=== PATIENT | female | born 1960 | race Caucasian/White ===

== ENCOUNTER 2021-04-11 21:57 | Inpatient (IN) | payer OTHER ==
[~2021-04-11] VITALS: Ht 152.4 cm; Wt 30.5 kg
[~2021-04-11 21:57] MED LIST: MEDROLDOSEPACK PO; TESSALON PERLE100 MG PO; VENTOLIN HFA 1818 GM INH; ZPAK PO
[2021-04-11 22:03] VITALS: BP 120/72
[2021-04-11] MEDS ORDERED: CELEXA 20 MG TA20 MG PO (22:09)
[2021-04-11] MEDS ORDERED: CLONAZEPAM 0.50.5 M1 PO (22:09)
[2021-04-11 22:43] LABS: ABSOLUTE LYMPHOCYTES 1.3 thou/uL (0.8-5.3); ABSOLUTE MONOCYTES 0.2 thou/uL (0.0-1.2); ABSOLUTE NEUTROPHILS 7.9 thou/uL (1.6-8.1); BASOPHILS 0.3 %; HEMATOCRIT 49.1 % (37.0-47.0); HEMOGLOBIN 17.2 gm/dL (12.0-15.0); LYMPHOCYTES 13.5 %; MCH 35.2 pg (26.0-34.0); MCV 100.6 fL (80.0-100.0); MONOCYTES 2.5 %; MPV 6.1 fl. (7.2-11.1); NUCLEATED RBCS 0 /100WBC; PLATELET COUNT* 368 thou/uL (150-400); POLYS 83.7 %; RBC 4.89 mil/uL (4.20-5.00); RDW-CV 12.3 % (10.5-14.5); WBC 9.4 thou/uL (4.0-11.0)
[2021-04-11 22:53] LABS: CREATININE 0.7 mg/dL (0.6-1.3); POTASSIUM 4.7 mmol/L (3.5-5.1)
[2021-04-11 22:53] LABS: PCO2 45.9 mmHg (35.0-45.0)
[2021-04-11 22:54] LABS: PO2 142.6 mmHg (75.0-100.0); pH 7.293 (7.340-7.450)
[2021-04-11 22:57] LABS: ALBUMIN 4.7 g/dL (3.4-5.0); MAGNESIUM 1.6 mg/dL (1.8-2.4); TOTAL BILIRUBIN 0.7 mg/dL (<0.1-1.0); TOTAL PROTEIN 7.5 g/dL (6.4-8.2)
[2021-04-12 02:25] VITALS: BP 97/53
[2021-04-12 02:44] VITALS: BP 134/64
[2021-04-12 07:44] LABS: URINE BLOOD TRACE (Negative); URINE CLARITY CLEAR; URINE COLOR YELLOW; URINE GLUCOSE-RANDOM NEGATIVE (Negative); URINE KETONES 2+ (Negative); URINE LEUKOCYTES-REFLEX NEGATIVE (Negative); URINE NITRITE-REFLEX NEGATIVE (Negative); URINE PROTEIN TRACE (Negative); URINE UROBILINOGEN 0.2 E.U./dl (0.2-1.0)
[2021-04-12 07:55] LABS: ICTOTEST (BILI CONFIRMATORY) Negative (Negative); URINE BILIRUBIN 2+ (Negative)
[2021-04-12 09:09] VITALS: BP 145/69
--- NOTE | 2021-04-12 15:15 | EKG ---
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1960 Requested By: Shiloh Almaguer Order Number: [id number] MD: Raheem Man Measurements Intervals [place] Rate: 106 P: 85 [place]: 125 QRS: 85 QRSD: 88 T: -48 QT: 324 QTc: 431 Interpretive Statements Sinus tachycardia Biatrial enlargement Borderline right axis deviation Abnormal R-wave progression, late transition Nonspecific ST-T abnormalities Since the prior tracing, the heart rate has increased Electronically Signed On 04-12-2021 15:15:35 CDT by Raheem Man [email or web address] <ELECTRONICALLY SIGNED> By: Raheem Man MD, [facility] 04/12/21 1515 03 03 Raheem Man MD, [facility] /EPI
[2021-04-12 16:00] VITALS: BP 164/74
[2021-04-12 20:00] VITALS: BP 130/67
[2021-04-13 05:24] LABS: HEMATOCRIT 39.1 % (37.0-47.0); MCH 34.9 pg (26.0-34.0); MCHC 34.8 g/dL (28.0-37.0); MCV 100.2 fL (80.0-100.0); MPV 6.2 fl. (7.2-11.1); RBC 3.9 mil/uL (4.20-5.00); RDW-CV 12.1 % (10.5-14.5); WBC 6.7 thou/uL (4.0-11.0)
[2021-04-13 05:38] LABS: CALCIUM 7.9 mg/dL (8.5-10.1); CREATININE 0.4 mg/dL (0.6-1.3); POTASSIUM 3.9 mmol/L (3.5-5.1)
[2021-04-13 06:35] LABS: HEMOGLOBIN 13.6 gm/dL (12.0-15.0)
[2021-04-13 09:15] VITALS: BP 134/75
[2021-04-13 15:28] LABS: BE -4.1 mmol/L (-2 to +3); PCO2 37.9 mmHg (35.0-45.0); PO2 95.4 mmHg (75.0-100.0); pH 7.358 (7.340-7.450)
[2021-04-13 16:00] VITALS: BP 121/72
[2021-04-13 20:20] VITALS: BP 141/76
[2021-04-14 09:41] VITALS: BP 142/73
[2021-04-14 17:32] VITALS: BP 143/74
[2021-04-15 07:30] VITALS: BP 159/73
[2021-04-15 17:02] VITALS: BP 151/68
[2021-04-15 18:33] VITALS: BP 151/68
== END 2021-04-15 19:00 | disposition home or self-care (01) | DRG 190 ==
LOC: M.ERS 21:57 → M.3W 04-12 00:38 → M.TBA-ER 04-12 00:38 → M.3W 04-12 02:27
PROVIDERS: Internal Medicine; Personal Emergency Response Attendant; ADMIT Internal Medicine; ATTEND Internal Medicine
DX: J44.1 Chronic obstructive pulmonary disease with (acute) exacerbation (principal); J96.01 Acute respiratory failure with hypoxia; E43 Unspecified severe protein-calorie malnutrition; J96.02 Acute respiratory failure with hypercapnia; E87.1 Hypo-osmolality and hyponatremia; Z68.1 Body mass index [BMI] 19.9 or less, adult; F41.9 Anxiety disorder, unspecified; E78.5 Hyperlipidemia, unspecified; E83.42 Hypomagnesemia; Z20.822 Contact with and (suspected) exposure to COVID-19; Z79.899 Other long term (current) drug therapy